=== PATIENT | female | born 1980 | race Native Hawaiian/Other Pacific Islander ===

== ENCOUNTER 2017-04-25 18:07 | Emergency (ER) | payer OTHER ==
[2017-04-25] MEDS ORDERED: ONDANSETRON 4 MG/2 ML VIAL IVP STA (19:20)
[2017-04-25 19:31] LABS: BILIRUBIN,URINE NEGATIVE (NEGATIVE); PH,URINE 6.5 PH (5.0-7.5)
[2017-04-25] MEDS ORDERED: ONDANSETRON 4 MG/2 ML VIAL ONE (19:34)
[2017-04-25 19:39] LABS: HCG UR QUAL NEGATIVE; UR CULTURE IF IND NOT INDICATED
--- NOTE | 2017-04-25 20:40 | ED Physician Documentation ---
History of Present Illness - Stated complaint Stated Complaint: VOMITING/NAUSEA - Chief complaint Chief Complaint: Abd Pain - History obtained from History obtained from: Patient (36 y/o female here for evaluation of approx 24 hours of cramping abdominal pain and nausea and vomiting. no travel, no ABX use , no camping, no joint pain, no fevers, no blood in the stool or vomit.) Review of Systems Constitutional: denies: Fever, Chills Throat: denies: Sore throat Cardiac: denies: Chest pain / pressure, Palpitations Respiratory: denies: Dyspnea, Cough GI: reports: Abdominal Pain, Nausea, Vomiting, Diarrhea. denies: Constipation, Hematemesis, Bloody / black stool : denies: Dysuria, Frequency Skin: denies: Rash, Lesions Musculoskeletal: denies: Back pain, Extremity pain Neurologic: denies: Generalized weakness, Headache PD PAST MEDICAL HISTORY - Past Medical History Past Medical History: Yes Cardiovascular: None Respiratory: None Neuro: None Endocrine/Autoimmune: None GI: GERD [employer]ICER: None : Kidney stones HEENT: None Psych: None Musculoskeletal: None Derm: None - Past Surgical History Past Surgical History: No - Present Medications Home Medications: Ambulatory Orders Medication Instructions Recorded Confirmed Ondansetron Odt [Zofran Odt] 4 mg PO Q6H PRN #10 tablet 04/25/17 raNITIdine [Zantac] 150 mg PO DAILY #30 tablet 04/25/17 - Allergies Allergies/Adverse Reactions: Allergies Allergy/AdvReac Type Severity Reaction Status Date / Time No Known Drug Allergies Allergy Verified 04/25/17 18:22 - Social History Does the pt smoke?: No Smoking Status: Never smoker Does the pt drink ETOH?: No Does the pt have substance abuse?: No - Immunizations Immunizations are current?: Yes - POLST Patient has POLST: No PD ED PE NORMAL - Vitals Vital signs reviewed: Yes - General General: Alert and oriented X 3, No acute distress - HEENT HEENT: Atraumatic, Moist mucous membranes - Cardiac Cardiac: RRR, No murmur - Respiratory Respiratory: No respiratory distress, Clear bilaterally - Abdomen Abdomen: Soft, Non tender, Non distended - Back Back: No CVA TTP - Derm Derm: Normal color, Warm and dry, No rash - Extremities Extremities: No deformity, No tenderness to palpate, Normal ROM s pain, No edema - Neuro Neuro: Alert and oriented X 3, Normal speech - Psych Psych: Normal mood, Normal affect Results - Vitals Vitals: Vital Signs - 24 hr 04/25/17 18:11 Temperature 36.6 C Heart Rate 92 Respiratory 18 Rate Blood Pressure 128/88 H O2 Saturation 98 Oxygen O2 Source Room air - Labs Labs: Laboratory Tests 04/25/17 04/25/17 19:25 19:25 Urine Color YELLOW Urine Clarity CLEAR Urine pH 6.5 Ur Specific [place] 1.015 1.015 Urine Protein NEGATIVE Urine Glucose (UA) NEGATIVE Urine Ketones NEGATIVE Urine Occult Blood NEGATIVE Urine Nitrite NEGATIVE Urine Bilirubin NEGATIVE Urine Urobilinogen 0.2 (NORMAL) Ur Leukocyte Esterase TRACE H Urine RBC 0-5 Urine WBC 11-25 H Ur Squamous Epith Cells MANY Squamous H Urine Bacteria Few Urine Culture Comments NOT INDICATED Urine HCG, Qual NEGATIVE PD MEDICAL DECISION MAKING - ED course Complexity details: d/w patient ED course: UA and HCG neg. pt reports improvement in her sx with the zofran here. She has a benign abd exam and will hold on a CT for now. No indication for abx. Discussed with the pt. will have her follow up with her primary care provider and gave return precautions. Departure - Departure Disposition: 01 Home, Self Care Clinical Impression: Diarrhea, Abdominal pain, Vomiting Condition: Good Instructions: ED Abdominal Pain Unkn Cause, ED Diet Vomiting Diarrhea Follow-Up: primary, care provider [Other] Prescriptions: Ondansetron Odt [Zofran Odt] 4 mg PO Q6H PRN #10 tablet PRN Reason: Nausea / Vomiting raNITIdine [Zantac] 150 mg PO DAILY #30 tablet Comments: Take all of your medications as instructed. Increase your fluid intake. Return to the ER for any new or worsening symptoms.
[2017-04-25 20:51] VITALS: BP 114/74
== END 2017-04-25 20:54 | disposition home or self-care (01) ==
LOC: ED 18:07
DX: R11.2 Nausea with vomiting, unspecified (principal); R10.84 Generalized abdominal pain; R19.7 Diarrhea, unspecified; K21.9 Gastro-esophageal reflux disease without esophagitis; Z87.442 Personal history of urinary calculi
CPT/HCPCS: 81001; 81025; 87086; 96374; 99283

== ENCOUNTER 2017-11-28 02:46 | Outpatient (CLI) | payer OTHER | END 2017-11-28 02:47 | disposition critical access hospital (66) | LOC: EMS 02:46 | PROVIDERS: ATTEND Surgery | DX: R10.9 Unspecified abdominal pain (principal); R42 Dizziness and giddiness | CPT/HCPCS: A0425; A0429 ==

== ENCOUNTER 2017-11-28 03:02 | Emergency (ER) | payer OTHER ==
[2017-11-28] MEDS ORDERED: SODIUM CHLORIDE 0.9% 1,000 ML IV ONE (03:11)
[2017-11-28 03:20] LABS: GLUCOSE, URINE (UA) NEGATIVE (NEGATIVE); KETONES,URINE (UA) NEGATIVE (NEGATIVE); LEUKOCYTE ESTERASE, URINE NEGATIVE (NEGATIVE); NITRITE,URINE NEGATIVE (NEGATIVE); OCCULT BLOOD,URINE LARGE (NEGATIVE); PROTEIN,URINE 100 mg/dL (NEGATIVE); UROBILINOGEN,URINE 0.2 (NORMAL) E.U./dL (NORMAL)
--- NOTE | 2017-11-28 03:22 | ED Physician Documentation ---
PD HPI FEMALE - Stated complaint Stated Complaint: RIGHT FLANK PAIN - Chief complaint Chief Complaint: Abd Pain - History obtained from History obtained from: Patient, EMS - History of Present Illness Timing - onset: Today Timing - details: Abrupt onset, Still present Associated symptoms: Abdominal pain Similar symptoms before: Work up / diagnostics, Treatment Recently seen: Not recently seen - Additional information Additional information: Patient is a 37 year old female with a history of kidney stones who is presenting to the emergency department for right sided flank pain. According to patient and ems the symptoms started this evening while the patient was at work. It feels similar to patient's previous episodes. patient wanted to wait for pain medication until reaching the hospital. patient has nausea with the pain but no vomiting. Review of Systems Ten Systems: 10 systems reviewed and negative Constitutional: denies: Fever, Chills GI: reports: Abdominal Pain, Nausea. 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 HEENT: None Psych: None Musculoskeletal: None Derm: None - Past Surgical History Past Surgical History: No - Present Medications Home Medications: Ambulatory Orders Medication Instructions Recorded Confirmed Ondansetron Odt [Zofran] 4 mg TL Q6H PRN #10 tablet 11/28/17 Oxycodone HCl/Acetaminophen 1 - 2 each PO Q6H PRN #14 tablet 11/28/17 [Percocet 5-325 mg Tablet] - Allergies Allergies/Adverse Reactions: Allergies Allergy/AdvReac Type Severity Reaction Status Date / Time No Known Drug Allergies Allergy Verified 11/28/17 03:09 - Social History Does the pt smoke?: No Smoking Status: Never smoker Does the pt drink ETOH?: No Does the pt have substance abuse?: No - Immunizations Immunizations are current?: Yes - POLST Patient has POLST: No PD ED PE NORMAL - Vitals Vital signs reviewed: Yes - General General: Alert and oriented X 3 - HEENT HEENT: Atraumatic - Cardiac Cardiac: RRR - Respiratory Respiratory: No respiratory distress - Abdomen Abdomen: Non tender, Non distended - Derm Derm: Normal color, Warm and dry - Extremities Extremities: No deformity, No edema - Neuro Neuro: Alert and oriented X 3 Eye Opening: Spontaneous PD ED PE EXPANDED - General General: Alert, Well developed/nourished, In Pain - HEENT HEENT: Dry mucous membranes Results - Vitals Vitals: Vital Signs - 24 hr 11/28/17 11/28/17 11/28/17 03:05 04:16 04:38 Temperature 37 C 36.5 C Heart Rate 88 92 103 H Respiratory 16 18 24 Rate Blood Pressure 152/73 H 118/70 117/85 H O2 Saturation 98 100 100 11/28/17 05:20 Temperature Heart Rate 88 Respiratory 15 Rate Blood Pressure 110/71 O2 Saturation 99 Oxygen O2 Source Room air - Labs Labs: Laboratory Tests 11/28/17 03:14 Urine Color RED/BLOODY Urine Clarity SL. CLOUDY Urine pH 6.0 Ur Specific [employer] 1.020 Urine Protein 100 H Urine Glucose (UA) NEGATIVE Urine Ketones NEGATIVE Urine Occult Blood LARGE H Urine Nitrite NEGATIVE Urine Bilirubin NEGATIVE Urine Urobilinogen 0.2 (NORMAL) Ur Leukocyte Esterase NEGATIVE Urine RBC TNTC H Urine WBC 0-3 Ur Squamous Epith Cells NONE SEEN Urine Bacteria Few Urine Mucus Marked Strands Ur Microscopic Review INDICATED Urine Culture Comments NOT INDICATED Urine HCG, Qual NEGATIVE - Rads (name of study) ct abd pelvis Radiology: Final report received (severe hydro, 3 by 2 mm stone) PD MEDICAL DECISION MAKING - ED course Complexity details: reviewed old records, reviewed results, re-evaluated patient , considered differential, d/w patient ED course: patient was seen and examined at bedside. urine was collected. there was hematuria and patient was not . IV access was gained and labs were drawn. patient was treated with ns bolus and toradol. Imaging was ordered. When patient returned from imaging she was still in pain and was treated with IV lidocaine with minimal relief. patient's CT showed severe hydro but the stone was small and would likely pass. Patient was still in pain and was treated with morphine and zofran with good relief. Patient's urinalysis showed no sign of infection. While patient did not require admission at this point, if she worsened she would need to return. Patient was given detailed discharge and follow up instructions and was stable for close, outpatient follow up. - Sepsis Event Vital Signs: Vital Signs - 24 hr 11/28/17 11/28/17 11/28/17 03:05 04:16 04:38 Temperature 37 C 36.5 C Heart Rate 88 92 103 H Respiratory 16 18 24 Rate Blood Pressure 152/73 H 118/70 117/85 H O2 Saturation 98 100 100 06/30/18 05:20 Temperature Heart Rate 88 Respiratory 15 Rate Blood Pressure 110/71 O2 Saturation 99 Oxygen O2 Source Room air Departure - Departure Disposition: 01 Home, Self Care Clinical Impression: Renal colic Condition: Good Instructions: ED Stone Renal W Colic Follow-Up: CARRIE KEANE [Primary Care Provider] - Within 3 Days Prescriptions: Ondansetron Odt [Zofran] 4 mg TL Q6H PRN #10 tablet PRN Reason: Nausea / Vomiting Oxycodone HCl/Acetaminophen [Percocet 5-325 mg Tablet] 1 - 2 each PO Q6H PRN # 14 tablet PRN Reason: pain Comments: Your symptoms today are being caused by a kidney stone. the stone is small and has a greater than 90% of passing on its own. That being said it has caused significant swelling in your kidney. You should stay well hydrated, drinking 100oz of water a day. You should return to the emergency department for new or worsening symptoms. Forms: Activity restrictions
[2017-11-28 03:23] LABS: BILIRUBIN,URINE NEGATIVE (NEGATIVE); CLARITY,URINE SL. CLOUDY (CLEAR); HCG UR QUAL NEGATIVE; ICTOTEST,URINE NEGATIVE
[2017-11-28 03:26] LABS: BACTERIA,URINE Few /HPF (None Seen); MUCUS,URINE Marked Strands; RBC,URINE TNTC /HPF (0-5); SQUAMOUS EPITHELIAL CELL,UR NONE SEEN (<= Few)
[2017-11-28] MEDS ORDERED: KETOROLAC 60 MG/2 ML VIAL IVP STA (03:27)
[2017-11-28] MEDS ORDERED: LIDOCAINE-MPF 2% 5 ML in SODIUM CHLORIDE 0.9% 50 ML IV STA (03:55)
--- NOTE | 2017-11-28 04:22 | CT Report ---
Procedure Date: 11/28/2017 Accession Number: [id number] / [id number] Procedure: CT - Abdomen/Pelvis W/O CPT Code: FULL RESULT: EXAM: CT ABDOMEN AND PELVIS (CT KUB) EXAM DATE: 11/28/2017 03:57 AM. CLINICAL HISTORY: Flank pain, history of kidney stones. COMPARISONS: None. TECHNIQUE: Routine axial helical CT imaging was performed through the abdomen and pelvis without IV contrast. Reconstructions: Coronal and sagittal. In accordance with CT protocol optimization, one or more of the following dose reduction techniques were utilized for this exam: automated exposure control, adjustment of mA and/or KV based on patient size, or use of iterative reconstructive technique. FINDINGS: Right Kidney/Ureter: Severe right-sided hydroureteronephrosis is noted, due to an obstructing UVJ stone measuring 2.5 x 3.4 x 2.8 cm (image 123 series 3). No definite suspicious renal mass within the confines of a noncontrast examination. No additional intrarenal stones. Left Kidney/Ureter: There is a punctate left upper kidney stone. No hydronephrosis or hydroureter. No definite renal mass within the confines of a non-contrast exam. Abdominal Solid Organs: Abdominal parenchymal organs are without significant abnormality within the confines of a noncontrast exam. Bowel: No evidence of bowel obstruction. Appendix: Normal. Lymph Nodes: No definite pathologic lymphadenopathy. Fluid: No significant ascites. Vasculature: Normal caliber aorta. Pelvis: No bladder stones. Visualized pelvic organs are without significant abnormality within the confines of a noncontrast exam. Bones: No definite suspicious bony lesions demonstrated. Lower Chest: No significant lung base consolidation or effusion. IMPRESSION: 1. Severe right hydroureteronephrosis due to UVJ stone measuring 2.5 x 3.4 x 2.8 mm. The stone measures 458 Hounsfield units in density. 2. There is a punctate nonobstructing left upper kidney intrarenal stone. [facility]
[2017-11-28] MEDS ORDERED: ONDANSETRON 4 MG/2 ML VIAL IVP STA (04:28)
[2017-11-28] MEDS ORDERED: MORPHINE 10 MG/ML VIAL IVP STA (04:28)
[2017-11-28 05:58] VITALS: BP 111/72
== END 2017-11-28 05:55 | disposition home or self-care (01) ==
LOC: EDUNIT# → ED 03:02
DX: N13.2 Hydronephrosis with renal and ureteral calculous obstruction (principal); Z87.442 Personal history of urinary calculi
CPT/HCPCS: 74176; 81001; 81025; 96361; 96374; 96375; 99284; J7040; 81003; 87086